=== PATIENT | male | born 1995 ===

== ENCOUNTER 2020-05-09 13:53 | Outpatient (REF) | payer MEDICAID, SELFPAY | END 2020-05-09 13:54 | disposition home or self-care (01) | LOC: HO.LAB 13:53 | PROVIDERS: Visit Provider Internal Medicine | DX: Z20.822 Contact with and (suspected) exposure to COVID-19 (principal) | CPT/HCPCS: 36415; C9803; U0003 ==

== ENCOUNTER 2020-08-09 14:56 | Outpatient (REF) | payer MEDICAID, SELFPAY ==
[2020-08-09 16:05] LABS: MANUAL DIFF FLAG NO
[2020-08-09 16:18] LABS: Estimated Average Glucose 100 mg/dL; Hemoglobin A1c % 5.1 %
[2020-08-09 16:19] LABS: Basophils Percent Auto 0.2 % (0-2); Eosinophils Absolute Auto 0.1 X10*3/uL (0.0-0.4); Eosinophils Percent Auto 1.1 % (0-4); Hematocrit 41.9 % (42-52); Hemoglobin 14.1 g/dl (14.0-18.0); Imm Gran Abs Auto 0.02 X10*3/uL (0.00-0.03); Imm Gran Pct Auto 0.2 % (0.0-0.4); Lymphocytes Absolute Auto 2.9 X10*3/uL (1.2-4.9); Lymphocytes Percent Auto 32.7 % (20-40); Mean Corpuscular HGB Conc 33.7 g/dl (31.0-36.0); Mean Corpuscular Volume 92.1 fL (80-98); Mean Platelet Volume 11.1 fL (9.4-12.4); Monocytes Absolute Auto 0.6 X10*3/uL (0.1-1.2); Monocytes Percent Auto 6.3 % (2-11); Neutrophils Absolute Auto 5.3 X10*3/uL (2.0-8.3); Neutrophils Percent Auto 59.5 % (45-73); Platelet Count 306 X10*3/uL (160-400); Red Blood Count 4.55 X10*6/uL (4.60-5.80); Red Cell Distribution Width 12.4 % (11.0-16.0); White Blood Count 8.9 X10*3/uL (4.8-10.8)
[2020-08-09 16:39] LABS: Alanine Aminotransferase 24 U/L (0-40); Albumin Level 4.6 g/dL (3.5-5.0); Alkaline Phosphatase 74 U/L (39-117); Anion Gap 12 (12-20); Aspartate Amino Transferase 17 U/L (5-37); Bilirubin Total 0.7 mg/dL (0.0-1.0); Blood Urea Nitrogen 18 mg/dL (9-16); Calcium 9.7 mg/dL (8.4-10.2); Carbon Dioxide 29 mmol/L (22-29); Chloride 106 mmol/L (96-108); Cholesterol 132 mg/dL; Estimated Glomerular Filt Rate > 60; Glucose Random 101 mg/dL (60-115); Potassium 4.2 mmol/L (3.3-5.1); Sodium 143 mmol/L (135-145); Total Protein 7.4 g/dL (6.5-8.0)
== END 2020-08-09 14:57 | disposition home or self-care (01) ==
LOC: HO.LAB 14:56
PROVIDERS: PCP Internal Medicine; Visit Provider Internal Medicine
DX: R10.9 Unspecified abdominal pain (principal); K21.9 Gastro-esophageal reflux disease without esophagitis; Z83.3 Family history of diabetes mellitus
CPT/HCPCS: 36415; 80053; 82465; 83036; 85025

== ENCOUNTER 2020-09-25 07:02 | Emergency (ER) | payer MEDICAID, SELFPAY ==
--- NOTE | ~2020-09-25 | XR_ITS ---
EXAMINATION: LEFT HAND AND WRIST CLINICAL INFORMATION: Wrist pain radiating to hand for 5 months COMPARISON: None TECHNIQUE: 4 view left wrist FINDINGS: There is no evidence of acute fracture or dislocation of the left hand and wrist. Left hand and wrist joint spaces are maintained. There is sequela of previous trauma seen involving the base of the fifth proximal phalanx. The fifth proximal interphalangeal joint is held in flexion with the fifth distal interphalangeal joint pain and extension. No soft tissue swelling. XR/XR hand wrist LT IMPRESSION: No significant acute bony abnormality of the left hand or wrist.
--- NOTE | 2020-09-25 09:07 | ED_ITS ---
HPI - General Adult General Chief complaint: General Medical Stated complaint: hand to wrist pain Time Seen by Provider: 09/25/20 09:00 Source: patient Mode of arrival: ambulatory Limitations: no limitations History of Present Illness HPI narrative: Patient presents to ED for mid wrist pain radiating up to hand for the past 5 months. Patient states as time feeling sharp pain/tingling pain going for mid wrist to hand. Patient denies any blunt trauma to right upper extremity. Patient denies any swelling, redness, fullness, wound, foul odor, pus discharge, red streaks on right upper extremity. Negative for chest pain or shortness of breath. Patient denies any history of blood clots, recent long travel, recent surgery, or estrogen hormone use. Patient does constant repetitive bending and flexion of wrist due to lifting boxes. Related Data Previous Rx's Medication Instructions Recorded doxycycline hyclate 100 mg PO BID #14 tab 09/25/20 Allergies Allergy/AdvReac Type Severity Reaction Status Date / Time No Known Allergies Allergy Verified 09/25/20 09:00 Review of Systems Review of Systems: Yes all other systems are reviewed and are negative Constitutional: Constitutional: Reports as per HPI and Reports no additional constitutional complaints Eyes: Eyes: Reports as per HPI and Reports no additional eye complaints ENT: Reports system reviewed and no additional complaints, except as documented and Reports as per HPI Cardiovascular: Cardiovascular: Reports as per HPI and Reports no additional cardiovascular complaints Respiratory: Respiratory: Reports as per HPI and Reports no additional respiratory complaints Gastrointestinal: Gastrointestinal: Reports as per HPI and Reports no additional gastrointestinal complaints Genitourinary: Genitourinary: Reports no additional male genitourinary complaints and Reports as per HPI Musculoskeletal: Musculoskeletal: Reports arthralgias (Hand/wrist) Neurologic: Reports system reviewed and no additional complaints, except as do cumented and Reports as per HPI Psychiatric: Psychiatric: Reports no additional psychiatric complaints and Reports as per HPI REPLACED BY [facility] Past Medical History Medical History (Updated 09/25/20 @ 10:35 by JASE Ann) No known health problems Social History Social History Advance Directives: No Advance Directives Information Provided: No Physical Exam Vital Signs: Vital Signs: Last Vital Signs Temp 98.3 F 09/25/20 09:25 Pulse 87 09/25/20 09:25 Resp 14 09/25/20 09:25 BP 126/84 09/25/20 09:25 Pulse Ox 97 05/23/21 09:25 Body Mass Index 27.1 Const: General: cooperative, healthy appearing, comfortable, no acute distress, well developed, alert, awake and Physically active Orientation/consciousness: patient oriented x3 HENMT: Head: Yes normal to inspection, Yes No palpable skull fracture present, Yes normocephalic, Yes atraumatic and No abrasion Eyes: General: appearance normal, both eyes and all related structures Neck: Neck: Yes normal visual inspection, Yes full ROM, Yes no lymphadenopathy, Yes no meningeal signs, Yes trachea midline, Yes supple and No tender Chest: Chest palpation & inspection: normal inspection of the chest and normal palpation of entire chest wall Resp: Effort & Inspection: normal respiratory effort and able to speak in complete sentences Auscultation: clear to auscultation bilaterally Cardio: Jugular venous distension: no JVD Heart sounds: S1 normal heart sound present and S2 normal heart sound present GI: Inspection: Yes normal to inspection and No abdominal wall ecchymosis Palpation (GI): Soft to palpation, not firm, nontender, no guarding and not rigid : General: No CVA tenderness and Yes no CVA tenderness Back/Spine/Pelvis: Back: no CVA tenderness, No CVA tenderness and No back tenderness Skin: General skin exam: no rashes or lesions noted and elasticity normal Neuro: General: patient oriented x3, gait normal, no meningeal signs and CN's II-XI intact bilaterally Cranial nerves: Yes CN's II-XII intact bilaterally Extrem: Other: Right upper extremity: Negative for any swelling, redness, red streaks, coolness, bluish/black discoloration of fingers, tightness, or deformity. Motor/vascular/neuro exam is intact. Positive Tinel and Phalen sign. Psych: Appearance: grossly normal, well kempt and not disheveled Course Course Course Narrative: History physical exam indicate compartment syndrome. Will send for x-ray to rule out any fractures. Not suspecting DVT. Reevaluation(s) Reevaluation #1: Nurse informed me that patient stated he want to get tested for gonorrhea chlamydia. Patient informed he was having dysuria. Patient is not tell me this. UA GT/NC ordered. exam negative for penile lesions cyst, pe nile discharge, testicular tenderness, scrotum swelling, redness of the testicle, or any other concerning symptoms. Reevaluation #2: X-ray negative for fracture. Patient will be placed in wrist splint for compartment syndrome. Patient given empiric treatment for STI Medical Decision Making MDM Narrative Medical decision making narrative: Compartment syndrome Lab Data Labs: Lab Results 09/25/20 09/25/20 Range/Units 09:46 09:46 Urine Color YELLOW Urine Appearance CLEAR Urine pH 6.0 (5.0-8.0) Ur Specific [place] 1.025 (1.005-1.025) Urine Protein NEG (NEG-TRACE) MG/DL Urine Glucose (UA) NEG (NEG) MG/DL Urine Ketones NEG (NEG) MG/DL Urine Blood NEG (NEG) Urine Nitrite NEG (NEG) Ur Leukocyte Esterase NEG (NEG) Chlam trachomat DNA PCR NOT DETECTED (Not Detect.) N.gonorrhoeae DNA (PCR) NOT DETECTED (Not Detect.) Discharge Plan Discharge Clinical Impression: Compartment syndrome Patient Disposition: Home, Self-Care Instructions: Compartment Syndrome (DC), Dysuria (ED) Additional Instructions: Return to the ED immediately for swelling left upper extremity, bluish black discoloration of fingertips, redness, chest pain, shortness of breath, penile lesions, testicular pain, penile discharge, form of lower extremity, calf pain, or any other concerning symptoms. Prescriptions: New doxycycline hyclate 100 mg tablet 100 mg PO BID Qty: 14 RF: 0 Referrals: Thanh Corona MD [Primary Care Provider] - 2 days (Compartment syndrome) Tuan Garvey PA-C [Physician Core Drier] - 2 days (Compartment syndrome) Interventions: ED Discharge Assessment Last Done: 09/25/20 10:54 Discharge Date/Time: 09/25/20 10:55 Print Language: Palauan
[2020-09-25 09:25] VITALS: BP 126/84; PULSE 87; RESP 14; TEMP 36.8; O2SAT 97; BMI 27.1
[2020-09-25 09:55] LABS: Appearance Urine CLEAR; Color Urine YELLOW; Glucose Urine UA NEG (NEG); Leukocyte Esterase Urine NEG (NEG); Nitrite Urine NEG (NEG); Specific Gravity - Urine 1.025 (1.005-1.025); Urine Blood NEG (NEG); Urine Ketones NEG (NEG); Urine Protein NEG (NEG-TRACE)
[2020-09-25] MEDS: cefTRIAXone sodium 500 MG, Lidocaine HCl 1 % MPF 1 ML IM (10:51)
[2020-09-25 12:30] LABS: CT PCR NOT DETECTED (Not Detect.); NG PCR NOT DETECTED (Not Detect.)
== END 2020-09-25 10:55 | disposition home or self-care (01) ==
PROVIDERS: Physician Assistant; Emergency Provider Emergency Medicine; PCP Internal Medicine
DX: T79.A12A Traumatic compartment syndrome of left upper extremity, initial encounter (principal); M79.642 Pain in left hand; R30.0 Dysuria; X58.XXXA Exposure to other specified factors, initial encounter; Y93.9 Activity, unspecified; Y92.9 Unspecified place or not applicable; Y99.9 Unspecified external cause status; Z79.899 Other long term (current) drug therapy
CPT/HCPCS: 29125; 73110; 73130; 81003; 87491; 87591; 96372; 99283; 99284; J0696

== ENCOUNTER → 2020-09-30 09:55 | Outpatient (BNVA) | payer MEDICAID, SELFPAY | PROVIDERS: Visit Provider Physician Assistant | DX: M77.8 Other enthesopathies, not elsewhere classified (principal) | CPT/HCPCS: 99202 ==

== ENCOUNTER 2021-12-15 13:03 | Emergency (ER) | payer MEDICAID, SELFPAY ==
[2021-12-15 14:31] VITALS: BP 125/82; PULSE 94; RESP 16; TEMP 37.4; O2SAT 99; BMI 24.2
--- NOTE | 2021-12-15 17:06 | ED_ITS ---
HPI - Burn/Smoke Inhalation General Chief complaint: Burn/Smoke Inhalation Stated complaint: abd burn iron Time Seen by Provider: 12/15/21 16:29 Source: patient Mode of arrival: ambulatory History of Present Illness HPI Narrative: 26-year-old male with no significant PMH, presents to the ED with a burn to his left thigh x 1 week. Patient reports that he was ironing his clothes when he accidentally pressed the steam button in close proximity to his left thigh. He said he sustained 2 chapman to his left thigh. He reports that the larger burn bubbled up and popped a few days ago. He states he has tried Neosporin ointment, but his pain persists. He endorses pain, warmth, and mild swelling to the proximal burn. Patient also concerned for pustule on the tip of his penis that he states has been recurring. Denies any discharge, dysuria, hematuria, urgency, or frequency. He also denies fever, chills, SOB, chest pain, nausea, vomiting, or abdominal pain. MD Complaint: burn Onset (ago): week(s) Related Data Previous Rx's Medication Instructions Recorded doxycycline hyclate 100 mg tablet 100 mg PO BID #14 tabs 09/25/20 cephalexin 500 mg tablet 500 mg PO Q6H 7 days #28 tabs 12/15/21 clotrimazole 1 % topical cream 1 appl topical TID #30 grams 12/15/21 Allergies Allergy/AdvReac Type Severity Reaction Status Date / Time bee pollen AdvReac swells Verified 12/15/21 14:36 Review of Systems Review of Systems: Constitutional: No Fever, No Chills ENT/Mouth: No sore throat, No Rhinorrhea, No Swallowing Difficulty Eyes: No Eye Pain, No Swelling, No Redness Cardiovascular: No Chest Pain, No SOB, No Edema Respiratory: No Cough, No Sputum, No Wheezing, No dyspnea Gastrointestinal: No Nausea, No Vomiting, No Diarrhea, No abdominal Pain Genitourinary: No Dysuria, No Urinary Frequency, No Hematuria, + Pimple on meatus Musculoskeletal: No joint pain, No Myalgias Skin: + Burn to left thigh Neuro: No Weakness, No Numbness, No Dizziness, No Headache Yes all other systems are reviewed and are negative PMFSH Past Medical History Medical History No known health problems Social History Social History (Updated 09/30/20 @ 10:20 by Tonia Mcmullne [facility]) Alcohol intake: never Advance Directives: No Advance Directives Information Provided: No Current occupational status: employed 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 Physical Exam Vital Signs: Vital Signs: Last Vital Signs Temp 99.4 F 12/15/21 14:31 Pulse 94 12/15/21 14:31 Resp 16 12/15/21 14:31 BP 125/82 12/15/21 14:31 Pulse Ox 99 12/15/21 14:31 O2 Del Method 12/15/21 14:31 BMI result Body Mass Index 24.2 Const: General: cooperative, healthy appearing, comfortable and no acute distress Orientation/consciousness: patient oriented x3 HEENT: Head: Yes normal to inspection Ears: hearing grossly normal bilaterally General nose exam: Normal external nose present Eyes: General: appearance normal, both eyes and all related structures Pupils: Equal, round and reactive pupils present Neck: Neck: Yes normal visual inspection Resp: Effort & Inspection: normal respiratory effort and able to speak in complete sentences Auscultation: clear to auscultation bilaterally, no crackles, no rales, no rhonchi and no wheezes Cardio: Rate: regular rate Rhythm: regular rhythm GI: Inspection: Yes normal to inspection : Other: +Pimple on meatus Skin: Other: Burn on proximal thigh, approx. 4 in length. Mild warmth and erythema appreciated. No evidence of discharge, weeping, fluctuance, edema, streaking, or induration. Body surface area <1%. Neuro: General: patient oriented x3 Cranial nerves: Yes Equal, round and reactive pupils present Extrem: General: Yes normal to inspection and Yes full ROM MDM - Burn/Smoke Inhalation MDM Narrative Medical decision making narrative: 26-year-old male with no significant PMH, presents to the ED with a burn to his left thigh x 1 week. On exam, vitals stable, NAD, non-toxic appearing. Body surface area <1%. Proximal burn on left thigh is approximately 4x1 inches with mild warmth and slight erythema of the wound boarders appreciated. No active swelling, discharge/draining, fluctuance, induration, or streaking. Patient also had one white pustule on meatus. Patient is uncircumcised. Concern for cellulitis, fungal infection, STI. Declines empiric treatment for STI today, will call if CT/NG positive. Lesion does no appear to be herpetic. Plan: CT NG, follow up with PCP Differential Diagnosis Differential diagnosis: Likely electrical burn Discharge Plan Discharge Clinical Impression: 2nd deg burn thigh, Balanitis Patient Disposition: Home, Self-Care Additional Instructions: Use topical bacitracin to your wound 2-3 times per day. Keep clean and covered. Gently wash with soap and water between treatments and pat dry. Take the prescribed antibiotic as directed, complete the entire course. Use the prescribed antibiotic ointment 3 times per day until completely resolved. Your tested for gonorrhea and chlamydia, is either these are positive we will call you and arrange antibiotics to be sent to her pharmacy. If you develop new or worsening symptoms call 911 or come back to the ER for further evaluation. Prescriptions: New cephalexin 500 mg tablet 500 mg PO Q6H 7 Days Qty: 28 0RF clotrimazole 1 % cream 1 appl topical TID Qty: 30 0RF No Action doxycycline hyclate 100 mg tablet 100 mg PO BID Qty: 14 0RF
[2021-12-16 02:47] LABS: CT PCR NOT DETECTED (Not Detect.); NG PCR NOT DETECTED (Not Detect.)
== END 2021-12-15 17:46 | disposition home or self-care (01) ==
PROVIDERS: Physician Assistant; Emergency Provider Emergency Medicine Emergency Medical Services; PCP Internal Medicine
DX: T24.212A Burn of second degree of left thigh, initial encounter (principal); T31.0 Burns involving less than 10% of body surface; X15.8XXA Contact with other hot household appliances, initial encounter; N48.1 Balanitis; Y93.E4 Activity, ironing; Y92.039 Unspecified place in apartment as the place of occurrence of the external cause; Y99.9 Unspecified external cause status
CPT/HCPCS: 87491; 87591; 99282; 99283

== ENCOUNTER 2022-04-22 13:05 | Emergency (ER) | payer MEDICAID, SELFPAY ==
--- NOTE | 2022-04-22 13:14 | ED_ITS ---
HPI - Male Genitourinary General Chief complaint: General Medical Stated complaint: Genital pain ? Time Seen by Provider: 04/22/22 14:54 Source: patient Mode of arrival: ambulatory Limitations: no limitations History of Present Illness HPI Narrative: 26yoM presenting to the ED c c/o yellowish abnormal penile discharged x a few days. No rashes. No burning upon urination or hematuria or abdominal pain. Reports recent sexual unprotected intercourse. Denies any other symptoms related to this. MD Complaint: penile discharge Onset (ago): day(s) (Past few days) Duration: constant Location: penis Severity: mild Relieving factors: none Exacerbating factors: urination Context: new sexual partner and other (Recent unprotected intercourse) Associated symptoms: Reports discharge Related Data Sexually active: Yes Previous Rx's Medication Instructions Recorded doxycycline hyclate 100 mg tablet 100 mg PO BID #14 tabs 09/25/20 cephalexin 500 mg tablet 500 mg PO Q6H 7 days #28 tabs 12/15/21 clotrimazole 1 % topical cream 1 appl topical TID #30 grams 12/15/21 doxycycline monohydrate 100 mg 100 mg PO BID 10 days #20 tabs 04/22/22 tablet Allergies Allergy/AdvReac Type Severity Reaction Status Date / Time bee pollen AdvReac swells Verified 12/15/21 14:36 Review of Systems Review of Systems: Constitutional : No Weight loss, No Fever, No Chills, No Night Sweats, No Fatigue, NoMalaise ENT/Mouth: No ear pain, No sore throat, No Difficulty swallowing Cardiovascular : No Chest Pain, No SOB, No Dyspnea on Exertion, No Orthopnea, NoEdema, No Palpitations Respiratory : No Cough, No Sputum, No Wheezing, No Dyspnea Gastrointestinal : No Nausea, No Vomiting, No Diarrhea, No abdominal Pain, No Hematochezia, No Melena Genitourinary : +penile discharge, No testicular pain, No irregular bleeding, No Dysuria, No Urinary Frequency, No Hematuria,No Urinary Incontinence, No Urgency, No Flank Pain Musculoskeletal : No joint pain, No Myalgias, No Joint Swelling Skin : No Skin Lesions, No rash Neuro : No Weakness, No Numbness, No Paresthesias, No Loss of Consciousness, NoDizziness, No Headache Psych : No Social Issues, Heme/Lymph: No Bruising, No Bleeding,No Lymphadenopathy Endocrine : No Polyuria, No Polydipsia, No Temperature Intolerance + thoughts of STDs Yes all other systems are reviewed and are negative [facility] Past Medical History Attestation statement: The following information was validated with the patient. 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 Blood pressure normal Heart rate normal. Respiration rate normal. Temperature normal. Oxygen saturation normal. Appearance: Alert. Oriented X3. No acute distress. Head: Normal external exam. Normocephalic. Atraumatic. Eyes: PERRLA. EOMI. Conjunctiva and sclera normal. Eyelids normal. ENT: Pharynx normal. Uvula midline. Moist mucous membranes. Neck: Normal inspection. Neck supple. FROM. CVS: Normal heart rate and rhythm. Respiratory: No respiratory distress. Painless inspiration. abdomen: Soft and nontender. No guarding. Skin: Skin warm and dry. Normal skin color. Normal skin turgor. No rashes/lesions/lacerations noted. Extremities: Extremities exhibit normal range of motion. Extremities nontender. Neuro: Oriented X 3. No motor deficit. No sensory deficit. Reflexes normal. Normal steady gait. No focal neuro deficits noted. Vascular: + radial pulses/+ 2 distal pedal pulses/+2 dorsalis pedis b/l. Normal cap refill. No cyanosis noted to upper extremity nails and lower extremity toes nails. Course Course Course Narrative: MERVAT- 13:15PM - 26yoM presenting to the ED c c/o yellowish abnormal penile discharged x a few days. No rashes. No burning upon urination or hematuria or abdominal pain. Reports recent sexual unprotected intercourse. Denies any other symptoms related to this. Plan: Labs to include syphilis, gonorrhea chlamydia urine, UA. Patient stable to go back to the waiting room [place] [facility] [place] Reevaluation(s) Reevaluation #1: Labs obtained reviewed and all labs within normal limits. UA revealed a trace of protein otherwise no evidence of UTI. Patient was negative for gonorrhea chlamydia. Syphilis still pending at this time. Patient was treated with IM 500 mg of Rocephin and 100 mg of doxycycline b.i.d. for 7 days this was before the patient's results came back. Patient was already discharged earlier. I explained to him that he will be called with any positive results. Otherwise jase chandler was discharged home with antibiotics and instructions return if any new or worsening symptoms. Patient understand and agree with this plan. Time: 16:47 Medications Administered Discontinued Medications Generic Name Dose Route Start Last Admin Trade Name Freq PRN Reason Stop Dose Admin Ceftriaxone Sodium 500 mg/ 0 mg 04/22/22 14:53 04/22/22 15:25 Lidocaine HCl 1 ml IM 04/22/22 14:54 1 kit ONCE ONE Administration Medical Decision Making Lab Data MDM Lab Attestation statement: I reviewed the patient's lab results. Result Diagrams: 04/22/22 14:34 04/22/22 14:33 Labs: Lab Results 04/22/22 04/22/22 04/22/22 Range/Units 14:27 14:28 14:33 WBC (4.8-10.8) X10*3/uL RBC (4.60-5.80) X10*6/uL Hgb (14.0-18.0) g/dl Hct (42.0-52.0) % MCV (80.0-98.0) fL MCH (27.0-33.0) pg MCHC (31.0-36.0) g/dl RDW (11.0-16.0) % Plt Count (160-400) X10*3/uL MPV (9.4-12.4) fL Immature Gran % (Auto) (0.0-0.4) % Neut % (Auto) (45-73) % Lymph % (Auto) (20-40) % [place] % (Auto) (2-11) % Eos % (Auto) (0-4) % Baso % (Auto) (0-2) % Lymph # (Auto) (1.2-4.9) X10*3/uL [place] # (Auto) (0.1-1.2) X10*3/uL Eos # (Auto) (0.0-0.4) X10*3/uL Baso # (Auto) (0.0-0.2) X10*3/uL Abs Immat Gran (auto) (0.00-0.03) X10*3/uL Absolute Neuts (auto) (2.0-8.3) x10*3/uL Absolute Nucleated RBC (0.0-0.012) X10*3/uL Nucleated RBC % (auto) (0.0-0.2) /100WBC Sodium 141 (135-145) mmol/L Potassium 4.3 (3.3-5.1) mmol/L Chloride 105 (96-108) mmol/L Carbon Dioxide 26 (22-29) mmol/L Anion Gap 14 (12-20) BUN 17 H (9-16) mg/dL Creatinine 0.84 (0.5-1.4) mg/dL Estim Creat Clear Calc 118.1 Estimated GFR > 60 Random Glucose 90 (60-115) mg/dL Calcium 9.8 (8.4-10.2) mg/dL Magnesium 1.9 (1.6-2.6) mg/dL Total Bilirubin 0.9 (0.0-1.0) mg/dL AST 20 (5-37) U/L ALT 22 (0-40) U/L Alkaline Phosphatase 76 (39-117) U/L Total Protein 7.6 (6.5-8.0) g/dL Albumin 4.7 (3.5-5.0) g/dL Urine Color Yellow Urine Appearance Clear Urine pH 5.5 (5.0-9.0) Ur Specific [place] >= 1.030 H (1.005-1.025) Urine Protein Trace (Neg-Trace) mg/dL Urine Glucose (UA) Negative (Negative) mg/dL Urine Ketones Negative (Negative) mg/dL Urine Blood Negative (Negative) Urine Nitrite Negative (Negative) Ur Leukocyte Esterase Negative (Negative) Chlam trachomat DNA PCR NOT DETECTED (Not Detect.) N.gonorrhoeae DNA (PCR) NOT DETECTED (Not Detect.) 04/22/22 Range/Units 14:34 WBC 8.4 (4.8-10.8) X10*3/uL RBC 4.95 (4.60-5.80) X10*6/uL Hgb 15.3 (14.0-18.0) g/dl Hct 43.7 (42.0-52.0) % MCV 88.3 (80.0-98.0) fL MCH 30.9 (27.0-33.0) pg MCHC 35.0 (31.0-36.0) g/dl RDW 12.1 (11.0-16.0) % Plt Count 280 (160-400) X10*3/uL MPV 10.1 (9.4-12.4) fL Immature Gran % (Auto) 0.1 (0.0-0.4) % Neut % (Auto) 56.1 (45-73) % Lymph % (Auto) 36.6 (20-40) % [place] % (Auto) 6.3 (2-11) % Eos % (Auto) 0.5 (0-4) % Baso % (Auto) 0.4 (0-2) % Lymph # (Auto) 3.1 (1.2-4.9) X10*3/uL [place] # (Auto) 0.5 (0.1-1.2) X10*3/uL Eos # (Auto) 0.0 (0.0-0.4) X10*3/uL Baso # (Auto) 0.0 (0.0-0.2) X10*3/uL Abs Immat Gran (auto) 0.01 (0.00-0.03) X10*3/uL Absolute Neuts (auto) 4.7 (2.0-8.3) x10*3/uL Absolute Nucleated RBC 0.000 (0.0-0.012) X10*3/uL Nucleated RBC % (auto) 0.0 (0.0-0.2) /100WBC Sodium (135-145) mmol/L Potassium (3.3-5.1) mmol/L Chloride (96-108) mmol/L Carbon Dioxide (22-29) mmol/L Anion Gap (12-20) BUN (9-16) mg/dL Creatinine (0.5-1.4) mg/dL Estim Creat Clear Calc Estimated GFR Random Glucose (60-115) mg/dL Calcium (8.4-10.2) mg/dL Magnesium (1.6-2.6) mg/dL Total Bilirubin (0.0-1.0) mg/dL AST (5-37) U/L ALT (0-40) U/L Alkaline Phosphatase (39-117) U/L Total Protein (6.5-8.0) g/dL Albumin (3.5-5.0) g/dL Urine Color Urine Appearance Urine pH (5.0-9.0) Ur Specific [place] (1.005-1.025) Urine Protein (Neg-Trace) mg/dL Urine Glucose (UA) (Negative) mg/dL Urine Ketones (Negative) mg/dL Urine Blood (Negative) Urine Nitrite (Negative) Ur Leukocyte Esterase (Negative) Chlam trachomat DNA PCR (Not Detect.) N.gonorrhoeae DNA (PCR) (Not Detect.) Discharge Plan Discharge Clinical Impression: Abnormal penile discharge, Encounter for assessment of STD exposure Patient Disposition: Home, Self-Care Instructions: Sexually Transmitted Diseases (ED), Safe Sex Practices for Adolescents (ED) Additional Instructions: You have pending lab results. If any are positive you will be contacted within 5-7 days. If you are not contacted UA negative for all results. If you are positive you will have to treat any sexual contact that you have had intercourse with. Or you can possibly reinfect yourself. Follow up with her primary care provider. Prescriptions: New doxycycline monohydrate 100 mg tablet 100 mg PO BID 10 Days Qty: 20 0RF No Action doxycycline hyclate 100 mg tablet 100 mg PO BID Qty: 14 0RF cephalexin 500 mg tablet 500 mg PO Q6H 7 Days Qty: 28 0RF clotrimazole 1 % cream 1 appl topical TID Qty: 30 0RF Referrals: Thanh Corona MD [Primary Care Provider] - 2 days Interventions: ED Discharge Assessment Last Done: 04/22/22 15:40 Discharge Date/Time: 04/22/22 15:40
[2022-04-22 13:15] VITALS: BP 124/67; PULSE 100; RESP 18; TEMP 36.9; O2SAT 98; BMI 24.2
[2022-04-22 14:39] LABS: MANUAL DIFF FLAG NO
[2022-04-22 14:41] LABS: Basophils Percent Auto 0.4 % (0-2); Eosinophils Percent Auto 0.5 % (0-4); Hematocrit 43.7 % (42.0-52.0); Hemoglobin 15.3 g/dl (14.0-18.0); Imm Gran Abs Auto 0.01 X10*3/uL (0.00-0.03); Imm Gran Pct Auto 0.1 % (0.0-0.4); Lymphocytes Absolute Auto 3.1 X10*3/uL (1.2-4.9); Lymphocytes Percent Auto 36.6 % (20-40); Mean Corpuscular Hemoglobin 30.9 pg (27.0-33.0); Mean Corpuscular Volume 88.3 fL (80.0-98.0); Mean Platelet Volume 10.1 fL (9.4-12.4); Monocytes Absolute Auto 0.5 X10*3/uL (0.1-1.2); Monocytes Percent Auto 6.3 % (2-11); Neutrophils Absolute Auto 4.7 x10*3/uL (2.0-8.3); Neutrophils Percent Auto 56.1 % (45-73); Platelet Count 280 X10*3/uL (160-400); Red Blood Count 4.95 X10*6/uL (4.60-5.80); Red Cell Distribution Width 12.1 % (11.0-16.0); White Blood Count 8.4 X10*3/uL (4.8-10.8)
[2022-04-22 14:44] LABS: Appearance Urine Clear; Color Urine Yellow; Glucose Urine UA Negative (Negative); Leukocyte Esterase Urine Negative (Negative); Nitrite Urine Negative (Negative); PH 5.5 (5.0-9.0); Specific Gravity - Urine >= 1.030 (1.005-1.025); Urine Blood Negative (Negative); Urine Ketones Negative (Negative); Urine Protein Trace mg/dL (Neg-Trace)
[2022-04-22] MEDS: cefTRIAXone sodium 500 MG, Lidocaine HCl 1 % MPF 1 ML IM (15:25)
[2022-04-22 15:43] LABS: Alanine Aminotransferase 22 U/L (0-40); Albumin Level 4.7 g/dL (3.5-5.0); Alkaline Phosphatase 76 U/L (39-117); Anion Gap 14 (12-20); Aspartate Amino Transferase 20 U/L (5-37); Bilirubin Total 0.9 mg/dL (0.0-1.0); Blood Urea Nitrogen 17 mg/dL (9-16); Calcium 9.8 mg/dL (8.4-10.2); Carbon Dioxide 26 mmol/L (22-29); Chloride 105 mmol/L (96-108); Creatinine Clr Calc Pharmacy 118.1; Estimated Glomerular Filt Rate > 60; Glucose Random 90 mg/dL (60-115); Magnesium 1.9 mg/dL (1.6-2.6); Potassium 4.3 mmol/L (3.3-5.1); Sodium 141 mmol/L (135-145); Total Protein 7.6 g/dL (6.5-8.0)
[2022-04-22 16:34] LABS: CT PCR NOT DETECTED (Not Detect.); NG PCR NOT DETECTED (Not Detect.)
[2022-04-25 04:43] LABS: Syphilis Screen Nonreactive (Nonreactive)
== END 2022-04-22 15:40 | disposition home or self-care (01) ==
PROVIDERS: Physician Assistant Medical; Emergency Provider Emergency Medicine; PCP Internal Medicine
DX: R36.9 Urethral discharge, unspecified (principal); Z20.2 Contact with and (suspected) exposure to infections with a predominantly sexual mode of transmission; Z79.899 Other long term (current) drug therapy
CPT/HCPCS: 36415; 80053; 81003; 83735; 85025; 86780; 87491; 87591; 96372; 99282; 99284; J0696

== ENCOUNTER 2022-07-10 04:15 | Emergency (ER) | payer MEDICAID, SELFPAY ==
--- NOTE | ~2022-07-10 | XR_ITS ---
EXAMINATION: XR FOOT, LEFT CLINICAL INFORMATION: Foreign body. Stepped on nail. COMPARISON: None TECHNIQUE: AP, lateral, and oblique views of the left foot. FINDINGS: No fracture or dislocation. Alignment maintained. Joint spaces are maintained. No radiopaque foreign body. The soft tissues are unremarkable. XR/XR foot LT 2V IMPRESSION: Normal left foot. No radiopaque foreign body.
[2022-07-10 04:48] VITALS: BP 118/71; PULSE 79; RESP 16; TEMP 36.3; O2SAT 97; BMI 24.2
--- NOTE | 2022-07-10 07:36 | ED_ITS ---
HPI - Extremity Injury (Lower) General Chief Complaint: Extremity Injury, Lower Stated Complaint: Stepped on nail Left Foot Time Seen by Provider: 07/10/22 07:31 Source: patient Mode of arrival: ambulatory Limitations: no limitations History of Present Illness HPI Narrative: bare foot not through sole of shoe complaint: foot injury Onset (ago): minute(s) (prior to arrival) Injury: Left: foot Type of Injury: puncture wound Place: home Severity: moderate Relieving factors: immobilization Exacerbating factors: palpation Context: stepped on nail Associated symptoms: swelling Other symptoms: none Treatments prior to arrival: bandage Related Data Previous Rx's Medication Instructions Recorded doxycycline hyclate 100 mg tablet 100 mg PO BID #14 tabs 09/25/20 cephalexin 500 mg tablet 500 mg PO Q6H 7 days #28 tabs 12/15/21 clotrimazole 1 % topical cream 1 appl topical TID #30 grams 12/15/21 doxycycline monohydrate 100 mg 100 mg PO BID 10 days #20 tabs 04/22/22 tablet amoxicillin 875 mg-potassium 1 tab PO BID #10 tabs 07/10/22 clavulanate 125 mg tablet Allergies Allergy/AdvReac Type Severity Reaction Status Date / Time bee pollen AdvReac swells Verified 12/15/21 14:36 Review of Systems Review of Systems: Constitutional : No Fever, No Chills, Cardiovascular : No Chest Pain, No SOB Respiratory : No Dyspnea Gastrointestinal : No abdominal pain Musculoskeletal : No Joint Swelling Skin : No rash, positive skin punctures Neuro : No Weakness, No Numbness Psych : No SI/HI PMFSH Past Medical History Attestation statement: The following information was validated with the patient. 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 Oriented X3. No acute distress. Eyes: Pupils equal, round and reactive to light. ENT: Pharynx normal. Neck: Normal inspection. Neck supple. CVS: Normal heart rate and rhythm. Pulses normal. Respiratory: No respiratory distress. Breath sounds normal. Abdomen: Soft and non-tender. Skin: Skin warm and dry. Normal skin color. Normal skin turgor. Extremities: No lower extremity edema. L foot small puncture wound plantar surface and on top of foot as well over 5th MTP area - no signs of FB no signs of infection distal NV intact Neuro: Oriented X 3. No motor deficit. No sensory deficit. Medications Administered Discontinued Medications Generic Name Dose Route Start Last Admin Trade Name Freq PRN Reason Stop Dose Admin Amoxicillin/Clavulanate Potassium 875 mg 07/10/22 07:35 07/10/22 07:57 Amoxicillin/Potassium Clav 875 Mg Tablet PO 07/10/22 07:36 875 mg ONCE ONE Administration Diphtheria/Tetanus/Acell Pertussis 0.5 ml 07/10/22 07:31 07/10/22 07:55 Diphth,Pertus(Acell),Tet Adult 0.5 Ml Syringe IM 07/10/22 07:32 0.5 ml .ONCE ONE Administration Medical Decision Making Medical Decision Making MDM Narrative: 26 yo male puncture wounds on foot from nail on board at home (uses it as a protection device on door) his cat knocked it on the floor comes in with c/o punctures wounds on the foot he was not wearing a shoe - NV intact xray for FB though low suspicion will give augmentin as prophylaxis, tdap and send home with precautions. Differential Diagnosis Differential Diagnoses: The differential diagnosis associated with the presentation includes puncture wound, FB Independent Interpretation I performed an independent interpretation of an: Plain X-Ray Interpretation: no FB seen Prescription Management I considered prescription management with: Antibiotic Discharge Plan Discharge Clinical Impression: Puncture wound of foot Patient Disposition: Home, Self-Care Instructions: Diphtheria/Acellular Pertussis/Tetanus Booster Vaccine (Tdap) (By..., Puncture Wound in the Foot (ED) Additional Instructions: return to ED for any worsening symptoms or concerns monitor for redness, swelling, yellow drainage, fevers keep clean dry and covered - okay to shower but no baths, pools, hot tubs while on augmentin take a probiotic it is normal to have looser stools no FB seen on xray Prescriptions: New amoxicillin-pot clavulanate 875-125 mg tablet 1 tab PO BID Qty: 10 0RF No Action doxycycline hyclate 100 mg tablet 100 mg PO BID Qty: 14 0RF cephalexin 500 mg tablet 500 mg PO Q6H 7 Days Qty: 28 0RF clotrimazole 1 % cream 1 appl topical TID Qty: 30 0RF doxycycline monohydrate 100 mg tablet 100 mg PO BID 10 Days Qty: 20 0RF
[2022-07-10] MEDS: Diphth,Pertus(ACell),Tet Adult 0.5 ML SYRINGE IM (07:55)
[2022-07-10] MEDS: Amoxicillin/Potassium Clav 875 MG TABLET PO (07:57)
== END 2022-07-10 08:10 | disposition home or self-care (01) ==
PROVIDERS: Emergency Provider Emergency Medicine; PCP Internal Medicine
DX: S91.332A Puncture wound without foreign body, left foot, initial encounter (principal); S90.812A Abrasion, left foot, initial encounter; M79.672 Pain in left foot; Y28.9XXA Contact with unspecified sharp object, undetermined intent, initial encounter; Y93.9 Activity, unspecified; Y92.9 Unspecified place or not applicable; Y99.9 Unspecified external cause status; Z79.899 Other long term (current) drug therapy; Z23 Encounter for immunization
CPT/HCPCS: 73620; 90471; 90715; 99282; 99284

== ENCOUNTER 2022-11-09 14:21 | Emergency (ER) | payer MEDICAID, SELFPAY ==
[2022-11-09 14:31] VITALS: BP 123/81; PULSE 74; RESP 15; TEMP 36.6; O2SAT 98; BMI 25.0
--- NOTE | 2022-11-09 14:31 | ED_ITS ---
HPI - General Adult General Chief complaint: General Medical Stated complaint: headache/1x week Time Seen by Provider: 11/09/22 16:27 Source: patient Mode of arrival: ambulatory Limitations: no limitations History of Present Illness HPI narrative: Patient history of headache off and on with light sensitivity with mild nausea no vomiting been having headache for last 1 week also complaining of pain in the upper back no fever no chills no purpose symptoms no trauma Related Data Previous Rx's Medication Instructions Recorded doxycycline hyclate 100 mg tablet 100 mg PO BID #14 tabs 09/25/20 cephalexin 500 mg tablet 500 mg PO Q6H 7 days #28 tabs 12/15/21 clotrimazole 1 % topical cream 1 appl topical TID #30 grams 12/15/21 doxycycline monohydrate 100 mg 100 mg PO BID 10 days #20 tabs 04/22/22 tablet amoxicillin 875 mg-potassium 1 tab PO BID #10 tabs 07/10/22 clavulanate 125 mg tablet lfabemszog-ckvperouhutlu-soonsbsn 1 cap PO Q6H PRN headache #20 caps 11/09/22 50 mg-300 mg-40 mg capsule (Fioricet) cyclobenzaprine 10 mg tablet 10 mg PO Q8H #20 tabs 11/09/22 tramadol 50 mg tablet 50 mg PO Q6H PRN pain #20 tabs 11/09/22 Allergies Allergy/AdvReac Type Severity Reaction Status Date / Time bee pollen AdvReac swells Verified 11/09/22 14:31 Review of Systems Review of Systems: Yes all other systems are reviewed and are negative PMFSH Past Medical History Medical History No known health problems Social History Social History Alcohol intake: never Patient Tobacco Use Status: Never used Tobacco Advance Directives: No Current occupational status: employed 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 Oriented X3. No acute distress. Eyes: PERRLA, No Nystagmus ENT: Pharynx normal. Oral Mucosa moist no temporal artery tenderness Neck: Normal inspection. Neck supple. No midline tenderness CVS: Normal heart rate and rhythm. Pulses normal. Respiratory: No respiratory distress. Equal air entry bilateral, no wheezing/rales/rhonchi Abdomen: Soft and nontender. Bowel sounds are present, no mass palpable, no CVA tenderness Skin: Skin warm and dry. Normal skin color. Normal skin turgor. back: Tenderness in interscapular muscles Extremities: No lower extremity edema. No calf tenderness Neuro: Oriented X 3. No motor deficit. No sensory deficit.No cerebellar signs , cranial nerves II-XII intact Course Course Course Narrative: This is an RME: Additional HPI, ROS, PE not included below will be deferred to primary provider. Patient is a 27 year old male with no medical history presenting with one week of headache, blurred vision, dizziness, and back pain. Patient reports 4/10 pain. Patient denies fever, nausea, sob, chest pain, numbness, or tingling. Patient has negative NIH stroke scale Plan: Visual acuity Medications Administered Discontinued Medications Generic Name Dose Route Start Last Admin Trade Name Freq PRN Reason Stop Dose Admin Acetaminophen/Butalbital/Caffeine 1 tab 11/09/22 16:46 11/09/22 17:36 Butalb/Acetamin/Caff 50/325/40 Tablet PO 11/09/22 16:47 1 tab ONCE ONE Administration Cyclobenzaprine HCl 10 mg 11/09/22 18:31 11/09/22 19:02 Cyclobenzaprine Hcl 10 Mg Tablet PO 11/09/22 18:32 10 mg ONCE ONE Administration Ketorolac Tromethamine 30 mg 11/09/22 14:24 11/09/22 17:29 Ketorolac Tromethamine 15 Mg/Ml Vial IM 11/09/22 14:25 Not Given ONCE ONE Ondansetron HCl 4 mg 11/09/22 16:46 11/09/22 17:37 Ondansetron Odt 4 Mg Tab.Rapdis TRANSLINGU 11/09/22 16:47 4 mg ONCE ONE Administration Sumatriptan Succinate 6 mg 11/09/22 16:46 11/09/22 17:37 Sumatriptan Succinate 6 Mg/0.5 Ml Vial SUBCUT 11/09/22 16:47 6 mg ONCE ONE Administration Tramadol HCl 50 mg 11/09/22 18:31 11/09/22 19:02 Tramadol Hcl 50 Mg Tablet PO 11/09/22 18:32 50 mg ONCE ONE Administration Medical Decision Making Medical Decision Making MDM Narrative: Patient likely with migraine headache with musculoskeletal pain and upper back did not respond to Imitrex, discharge patient home on Fioricet and tramadol and flexeril Discharge Plan Discharge Clinical Impression: Headache, migraine, Pain, upper back Patient Disposition: Home, Self-Care Instructions: Migraine Headache (ED), Musculoskeletal Pain (ED) Additional Instructions: Take medication as prescribed and follow with PCP Prescriptions: New cyclobenzaprine 10 mg tablet 10 mg PO Q8H Qty: 20 0RF tramadol 50 mg tablet 50 mg PO Q6H PRN (Reason: pain) Qty: 20 0RF klpjnamuzn-zexniqmbhfsng-sevs [Fioricet] 50-300-40 mg capsule 1 cap PO Q6H PRN (Reason: headache) Qty: 20 0RF No Action doxycycline hyclate 100 mg tablet 100 mg PO BID Qty: 14 0RF cephalexin 500 mg tablet 500 mg PO Q6H 7 Days Qty: 28 0RF clotrimazole 1 % cream 1 appl topical TID Qty: 30 0RF doxycycline monohydrate 100 mg tablet 100 mg PO BID 10 Days Qty: 20 0RF amoxicillin-pot clavulanate 875-125 mg tablet 1 tab PO BID Qty: 10 0RF
[2022-11-09 15:39] VITALS: BP 116/70; PULSE 75; RESP 16; TEMP 37.2; O2SAT 98
--- NOTE | 2022-11-09 15:40 | MHC.EDTECH ---
this pct assumed care of pt at 1500 ,vitals sign taken and visual acuity check done .
[2022-11-09 17:46] VITALS: BP 127/67; PULSE 67; RESP 16; TEMP 36.6; O2SAT 98
== END 2022-11-09 19:19 | disposition home or self-care (01) ==
PROVIDERS: Emergency Provider Internal Medicine; PCP Internal Medicine
DX: G43.909 Migraine, unspecified, not intractable, without status migrainosus (principal); M54.6 Pain in thoracic spine; Z79.899 Other long term (current) drug therapy
CPT/HCPCS: 96372; 99283; 99284; J3030

== ENCOUNTER 2022-11-20 15:20 | Emergency (ER) | payer MEDICAID, SELFPAY ==
--- NOTE | ~2022-11-20 | CT_ITS ---
EXAMINATION: CT HEAD WITHOUT CONTRAST CLINICAL INFORMATION: Headache. COMPARISON: None. TECHNIQUE: Contiguous axial imaging was performed from the skull base to vertex without intravenous administration of contrast. Coronal and sagittal reformatted images are performed at the CT scanner. [This CT examination was performed using dose optimization techniques as appropriate, variously including the following: *Automated exposure control *Adjustment of mA and/or kV according to patient size (this includes techniques or standardized protocols for targeted exams where dose is matched to indication/reason for exam; i.e. extremities or head) *Use of iterative reconstruction technique] DLP: 637 mGy-cm. FINDINGS: There is no evidence of acute intracranial hemorrhage or territorial infarction. No abnormal mass-effect or midline shift is seen. Agrawal to white matter differentiation is well preserved. No extra-axial fluid collections are identified. The ventricles are normal in size. There is no abnormal attenuation within the brain parenchyma. There is no osseous abnormality. The mastoid air cells and visualized portions of the paranasal sinuses are well-aerated. CT/CT head/brain wo IV con IMPRESSION: No acute intracranial pathology.
[2022-11-20 15:40] VITALS: BP 120/64; PULSE 81; RESP 18; TEMP 36.4; O2SAT 97; BMI 24.2
--- NOTE | 2022-11-20 16:32 | ED_ITS ---
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 He denies any associated fevers, chills denies any visual or speech difficulties but reports some photophobia and mild nausea so he is associating this with possible migraines and is unsure of family history. He denies any traumatic injuries, he is up-to-date on vaccines and denies any tick exposure. Related Data Previous Rx's Medication Instructions Recorded doxycycline hyclate 100 mg tablet 100 mg PO BID #14 tabs 09/25/20 cephalexin 500 mg tablet 500 mg PO Q6H 7 days #28 tabs 12/15/21 clotrimazole 1 % topical cream 1 appl topical TID #30 grams 12/15/21 doxycycline monohydrate 100 mg 100 mg PO BID 10 days #20 tabs 04/22/22 tablet amoxicillin 875 mg-potassium 1 tab PO BID #10 tabs 07/10/22 clavulanate 125 mg tablet clfuaswhla-fddrldaabcjvy-iajkoylp 1 cap PO Q6H PRN headache #20 caps 11/09/22 50 mg-300 mg-40 mg capsule (Fioricet) cyclobenzaprine 10 mg tablet 10 mg PO Q8H #20 tabs 11/09/22 tramadol 50 mg tablet 50 mg PO Q6H PRN pain #20 tabs 11/09/22 ketorolac 10 mg tablet 10 mg PO Q6H PRN pain 5 days #20 11/20/22 tabs Allergies Allergy/AdvReac Type Severity Reaction Status Date / Time bee pollen AdvReac swells Verified 11/09/22 14:31 Review of Systems Review of Systems: Pertinent positives and negatives as stated in HPI [facility] Past Medical History Source: nursing notes reviewed Medical History No known health problems Social History Social History Alcohol intake: never Patient Tobacco Use Status: Never used Tobacco Advance Directives: No Advance Directives Information Provided: No Current occupational status: employed 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 GENERAL: Well developed, well nourished, in no acute distress. HEAD: Normocephalic/atraumatic EYES: PERRLA, EOMI EARS: Ext canals without abnormality, TMs non-bulging and non-erythematous NOSE: Nares patent bilateral OROPHARYNX: no oral lesions noted, posterior pharynx clear and non-erythematous without noted tonsillar enlargement/erythema/exudates NECK: Supple, no adenopathy LUNGS: Normal breath sounds. No adventitious sounds or accessory muscle use. SpO2<97> CARDIOVASCULAR: Regular rate and rhythm without noted murmurs. ABDOMEN: Soft, non-tender, non-distended with bowel sounds. MUSCULOSKELETAL: No tenderness, deformities, or effusions noted on gross inspection. EXTREMITIES: No cyanosis, clubbing or edema. SKIN: Inspection of the skin reveals no rashes NEUROLOGIC: Alert and oriented x 4. Strength and sensation to light touch were grossly intact x 4. Course Course Course Narrative: This is a rapid medical exam. Deferred additional HPI, ROS, PE to primary provider. 27 yo with no known medical history here with constant headache x 3 weeks (diffuse headache), photophobia, phonophobia. No history of migraines. NO neck stiffness or fevers. D/t length of symptoms will check ct head. VSS Medications Administered Discontinued Medications Generic Name Dose Route Start Last Admin Trade Name Freq PRN Reason Stop Dose Admin Acetaminophen 975 mg 11/20/22 17:35 11/20/22 17:43 Acetaminophen 325 Mg Tablet PO 11/20/22 17:36 975 mg ONCE ONE Administration Ketorolac Tromethamine 15 mg 11/20/22 17:35 11/20/22 17:42 Ketorolac Tromethamine 15 Mg/Ml Vial IM 11/20/22 17:36 15 mg ONCE ONE Administration Medical Decision Making Medical Decision Making [facility] Narrative: 27M with history and clinical presentation c/w tension/migraine headache. We discussed keeping a headache journal to better identify events surrounding the headaches, massage therapy. No radicular symptoms and pt is non-focal, CT head negative for mass or mass effect and no ICH. No suspicion for meningitis or Lyme disease. He received Tylenol and Toradol with good response and is discharged. Differential Diagnosis Differential Diagnoses: The differential diagnosis associated with the presentation includes Headache, tumor, ICH Admission/Observation Consideration of admission/observation: Escalation of care including admission/observation considered Radiology Impression Radiologist Impression: no mass or bleed, otherwise my interpretation is in agreement with radiology's impression. Discharge Plan Discharge Clinical Impression: Headache, Tension headache Patient Disposition: Home, Self-Care Instructions: Tension Headache (ED), General Headache (ED) Additional Instructions: 1. Tylenol 1000 mg, orally, every 6 hours as needed for pain control. Do not exceed 4000 mg within 24 hours. 2. I have sent a prescription for Toradol to your pharmacy. 3. Recommend that you keep a headache journal as discussed. 4. Please speak with your primary care provider at your scheduled appointment this . Return to the ER for any worsening symptoms. Prescriptions: New ketorolac 10 mg tablet 10 mg PO Q6H PRN (Reason: pain) 5 Days Qty: 20 0RF Rx Instructions: Patient received Toradol in the emergency room. No Action doxycycline hyclate 100 mg tablet 100 mg PO BID Qty: 14 0RF cephalexin 500 mg tablet 500 mg PO Q6H 7 Days Qty: 28 0RF clotrimazole 1 % cream 1 appl topical TID Qty: 30 0RF doxycycline monohydrate 100 mg tablet 100 mg PO BID 10 Days Qty: 20 0RF amoxicillin-pot clavulanate 875-125 mg tablet 1 tab PO BID Qty: 10 0RF cyclobenzaprine 10 mg tablet 10 mg PO Q8H Qty: 20 0RF tramadol 50 mg tablet 50 mg PO Q6H PRN (Reason: pain) Qty: 20 0RF qhrtikwgvb-lvlylarybdpmn-udcq [Fioricet] 50-300-40 mg capsule 1 cap PO Q6H PRN (Reason: headache) Qty: 20 0RF Referrals: Thanh Corona MD [Primary Care Provider] -
[2022-11-20] MEDS: Ketorolac Tromethamine 15 MG/ML VIAL IM (17:42)
[2022-11-20] MEDS: Acetaminophen 325 MG TABLET 975 MG PO (17:43)
== END 2022-11-20 18:51 | disposition home or self-care (01) ==
PROVIDERS: Emergency Provider Student in an Organized Health Care Education/Training Program; PCP Internal Medicine
DX: R51.9 Headache, unspecified (principal); Z79.899 Other long term (current) drug therapy
CPT/HCPCS: 70450; 96372; 99283; 99284; J1885

== ENCOUNTER 2022-11-22 12:35 | Outpatient (REF) | payer MEDICAID, SELFPAY ==
[2022-11-22 13:27] LABS: Appearance Urine Clear; Color Urine Yellow; Glucose Urine UA Negative (Negative); Leukocyte Esterase Urine Negative (Negative); Nitrite Urine Negative (Negative); PH 6.5 (5.0-9.0); Urine Blood Negative (Negative); Urine Ketones Negative (Negative); Urine Protein Negative (Neg-Trace)
[2022-11-22 13:28] LABS: MANUAL DIFF FLAG NO
[2022-11-22 13:30] LABS: Bacteria Urine None Seen (None Seen); Hyaline Casts Urine 0-2 /LPF (0-2); RBC Urine 0-2 /HPF (0-2); Squamous Epithelial Cell Urine 0-2 /HPF (0-2); WBC Urine 0-5 /HPF (0-5)
[2022-11-22 13:51] LABS: Basophils Percent Auto 0.3 % (0-2); Eosinophils Absolute Auto 0.1 X10*3/uL (0.0-0.4); Eosinophils Percent Auto 0.8 % (0-4); Hematocrit 45.5 % (42.0-52.0); Hemoglobin 15.3 g/dl (14.0-18.0); Imm Gran Abs Auto 0.02 X10*3/uL (0.00-0.03); Imm Gran Pct Auto 0.2 % (0.0-0.4); Lymphocytes Absolute Auto 3.6 X10*3/uL (1.2-4.9); Lymphocytes Percent Auto 38.8 % (20-40); Mean Corpuscular HGB Conc 33.6 g/dl (31.0-36.0); Mean Corpuscular Hemoglobin 30.8 pg (27.0-33.0); Mean Corpuscular Volume 91.5 fL (80.0-98.0); Mean Platelet Volume 10.7 fL (9.4-12.4); Monocytes Absolute Auto 0.5 X10*3/uL (0.1-1.2); Monocytes Percent Auto 4.8 % (2-11); Neutrophils Absolute Auto 5.1 x10*3/uL (2.0-8.3); Neutrophils Percent Auto 55.1 % (45-73); Platelet Count 332 X10*3/uL (160-400); Red Blood Count 4.97 X10*6/uL (4.60-5.80); White Blood Count 9.3 X10*3/uL (4.8-10.8)
[2022-11-22 14:55] LABS: Alanine Aminotransferase 61 U/L (0-40); Albumin Level 4.9 g/dL (3.5-5.0); Alkaline Phosphatase 77 U/L (39-117); Anion Gap 14 (12-20); Aspartate Amino Transferase 22 U/L (5-37); Bilirubin Total 0.8 mg/dL (0.0-1.0); Blood Urea Nitrogen 16 mg/dL (9-16); C Reactive Protein 0.11 mg/dL (< or = 0.50); Calcium 10.3 mg/dL (8.4-10.2); Carbon Dioxide 29 mmol/L (22-29); Chloride 102 mmol/L (96-108); Estimated Glomerular Filt Rate > 60; Glucose Random 97 mg/dL (60-115); Potassium 4.4 mmol/L (3.3-5.1); Sodium 141 mmol/L (135-145); Total Protein 8.2 g/dL (6.5-8.0)
[2022-11-22 15:45] LABS: Vitamin B12 471 pg/mL (200-900)
[2022-11-22 18:41] LABS: CT PCR NOT DETECTED (Not Detect.); NG PCR NOT DETECTED (Not Detect.)
== END 2022-11-22 12:36 | disposition home or self-care (01) ==
LOC: HO.10HDL 12:35
PROVIDERS: Visit Provider Internal Medicine
DX: Z11.3 Encounter for screening for infections with a predominantly sexual mode of transmission (principal); R63.4 Abnormal weight loss; R51.9 Headache, unspecified; R00.2 Palpitations
CPT/HCPCS: 0353U; 80053; 81001; 82607; 84439; 84443; 85025; 86140; 87086